=== PATIENT | male | born 1970 | race African-American/Black ===

== ENCOUNTER 2016-07-23 09:07 | Emergency (ER) | payer OTHER ==
[2016-07-23 09:20] VITALS: BP 146/86; PULSE 110; TEMP 98; BMI 35.9
[2016-07-23] MEDS ORDERED: NAPROXEN 500 MG TABLET (FP) PO ONE (09:48)
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
== END 2016-07-23 10:01 | disposition home or self-care (01) ==
LOC: JERFT 09:07
DX: S39.012A Strain of muscle, fascia and tendon of lower back, initial encounter (principal); X50.0XXA Overexertion from strenuous movement or load, initial encounter; X00.8XXA Other exposure to uncontrolled fire in building or structure, initial encounter; Y93.89 Activity, other specified; Y92.89 Other specified places as the place of occurrence of the external cause; Y99.0 Civilian activity done for income or pay
CPT/HCPCS: 99281-25

== ENCOUNTER 2017-09-15 23:10 | Emergency (ER) | payer OTHER ==
[2017-09-15] MEDS ORDERED: ACETAMINOPHEN 1000 MG/100 ML VIAL (NON FORMULARY) IVPB ONE (23:22)
[2017-09-15] MEDS ORDERED: IBUPROFEN 800 MG/8 ML IJ IVPB ONE (23:23)
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
[2017-09-15] MEDS ORDERED: IBUPROFEN 600 MG TABLET (FP) PO ONE (23:30)
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
[2017-09-15 23:36] VITALS: BP 128/93; PULSE 120; TEMP 97; BMI 36.2
== END 2017-09-15 23:44 | disposition home or self-care (01) ==
LOC: JER 23:10
DX: S39.012A Strain of muscle, fascia and tendon of lower back, initial encounter (principal); M25.511 Pain in right shoulder; X50.0XXA Overexertion from strenuous movement or load, initial encounter; Y93.89 Activity, other specified; Y92.89 Other specified places as the place of occurrence of the external cause; Y99.0 Civilian activity done for income or pay
CPT/HCPCS: 99281-25

== ENCOUNTER 2017-11-24 19:25 | Emergency (ER) | payer OTHER ==
[2017-11-24 19:30] VITALS: BP 136/92; PULSE 96; TEMP 98.1; BMI 36.0
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
== END 2017-11-24 20:34 | disposition home or self-care (01) ==
LOC: JER 19:25 → JERFT 19:25
PROC: 2W3QXYZ Immobilization of Right Lower Leg using Other Device (ICD-10-PCS; principal; 2017-11-24)
DX: S83.8X1A Sprain of other specified parts of right knee, initial encounter (principal); X50.1XXA Overexertion from prolonged static or awkward postures, initial encounter; V86.41XA Person injured while boarding or alighting from ambulance or fire engine, initial encounter; Y92.488 Other paved roadways as the place of occurrence of the external cause; Y99.0 Civilian activity done for income or pay; Y93.89 Activity, other specified
CPT/HCPCS: 73562-TC-RT-FY; 99281-25

== ENCOUNTER 2018-03-04 05:03 | Emergency (ER) | payer OTHER ==
[2018-03-04 05:09] VITALS: BP 152/96; PULSE 89; TEMP 98.6; BMI 36.2
[2018-03-04] MEDS ORDERED: KETOROLAC TROMETHAMINE 60 MG/2 ML VIAL IM ONE (05:10)
--- NOTE | 2018-03-04 05:14 | PDOC ---
Attending Attestation - Resident Resident Name: Robby Velasco - ED Attending Attestation I have performed the following: I have examined & evaluated the patient, The case was reviewed & discussed with the resident, I agree w/resident's findings & plan, Exceptions are as noted - HPI HPI: 03/04/18 05:07 47 yo M presenting with a complaint of left shoulder pain after starting a saw No limitations in range of motion. - Physicial Exam PE: 03/04/18 05:07 On examination: - Medical Decision Making 03/04/18 05:10 Shoulder x ray not needed Toradol for pain D/C home Follow up with Orthopedist
--- NOTE | 2018-03-04 05:14 | PDOC ---
History of Present Illness - General Chief Complaint: Pain, Acute Stated Complaint: LT SHOULDER PAIN Time Seen by Provider: 03/04/18 05:05 History Source: Patient Exam Limitations: No Limitations - History of Present Illness Initial Comments: 03/04/18 05:10 Patient is a 47M with no significant medical history here today complaining of left shoulder pain after starting a saw. Denies a sensation of the shoulder being out of the joint. Denies any limitations to range of motion. Denies direct trauma. Denies fevers, chills, nausea, vomiting. Denies chest pain, shortness of breath. Past History - Past Medical History Allergies/Adverse Reactions: Allergies Allergy/AdvReac Type Severity Reaction Status Date / Time No Known Allergies Allergy Verified 03/04/18 05:07 Home Medications: Ambulatory Orders Ibuprofen 800 mg PO TID #30 tablet 11/24/17 - Suicide/Smoking/Psychosocial Hx Smoking Status: No Smoking History: Never smoked Have you smoked in the past 12 months: No Number of Cigarettes Smoked Daily: 0 Information on smoking cessation initiated: No Hx Alcohol Use: No Drug/Substance Use Hx: No Substance Use Type: None Review of Systems - Review of Systems Comments:: 03/04/18 05:11 GENERAL/CONSTITUTIONAL: No fever or chills. No weakness. HEAD, EYES, EARS, NOSE AND THROAT: No change in vision.No sore throat. CARDIOVASCULAR: No chest pain or shortness of breath RESPIRATORY: No cough, wheezing, or hemoptysis. GASTROINTESTINAL: No nausea, vomiting, diarrhea or constipation. GENITOURINARY: No dysuria, frequency, or change in urination. MUSCULOSKELETAL: +left shoulder pain. No neck or back pain. SKIN: No rash NEUROLOGIC: No headache, vertigo, loss of consciousness, or change in strength/ sensation. ALLERGIC/IMMUNOLOGIC: No hives or skin allergy. *Physical Exam - Vital Signs Last Vital Signs Temp Pulse Resp BP Pulse Ox 98.6 F 89 18 152/96 97 03/04/18 05:07 03/04/18 05:07 03/04/18 05:07 03/04/18 05:07 03/04/18 05:07 - Physical Exam Comments: 03/04/18 05:12 GENERAL: Awake, alert, and fully oriented, in no acute distress L SHOULDER: Neurovascularly intact, normal strength, nontender along collarbone/ humerus, no axillary nerve deficits HEAD: No signs of trauma, normocephalic, atraumatic EYES: PERRLA, EOMI, sclera anicteric, conjunctiva clear ENT: Auricles normal inspection, hearing grossly normal, nares patent, oropharynx clear without exudates. Moist mucosa NECK: Normal ROM, supple, no lymphadenopathy, JVD, or masses LUNGS: No distress, speaks full sentences, clear to auscultation bilaterally HEART: Regular rate and rhythm, normal S1 and S2, no murmurs, rubs or gallops, peripheral pulses normal and equal bilaterally. NEUROLOGICAL: Cranial nerves II through XII grossly intact. Normal speech, normal gait, no focal sensorimotor deficits SKIN: Warm, Dry, normal turgor, no rashes or lesions noted. Medical Decision Making - Medical Decision Making 03/04/18 05:13 Patient is 47M here today with atraumatic shoulder pain. Vital signs normal and stable. Mechanical injury. No reason to suspect atypical ACS given history and physical. Will treat with toradol. Discharge. Patient has ortho follow up. *DC/Admit/Observation/Transfer Diagnosis at time of Disposition: Shoulder pain, left - Discharge Dispostion Disposition: HOME Condition at time of disposition: Good Decision to Admit order: No - Referrals - Patient Instructions Printed Discharge Instructions: DI for Shoulder Sprain Additional Instructions: Please follow up with your PCP or Orthopedic doctor this week. - Post Discharge Activity
[2018-03-04] MEDS ORDERED: KETOROLAC TROMETHAMINE 60 MG/2 ML VIAL ONE (05:16)
== END 2018-03-04 05:22 | disposition home or self-care (01) ==
LOC: JER 05:03
PROC: 3E0233Z Introduction of Anti-inflammatory into Muscle, Percutaneous Approach (ICD-10-PCS; principal; 2018-03-04)
DX: S43.492A Other sprain of left shoulder joint, initial encounter (principal); X50.0XXA Overexertion from strenuous movement or load, initial encounter; Y93.89 Activity, other specified; Y92.89 Other specified places as the place of occurrence of the external cause; Y99.0 Civilian activity done for income or pay
CPT/HCPCS: 99283-25

== ENCOUNTER 2020-10-01 22:03 | Emergency (ER) | payer OTHER ==
[2020-10-01 22:14] VITALS: TEMP 98.3; BMI 36.2
[2020-10-02 00:09] VITALS: BP 141/79; PULSE 100
== END 2020-10-02 00:16 | disposition home or self-care (01) ==
LOC: JER 22:03
DX: M25.561 Pain in right knee (principal)
CPT/HCPCS: 73562-TC-RT-FY; 99283-25

== ENCOUNTER 2022-08-18 14:42 | Emergency (ER) | payer OTHER ==
[2022-08-18 14:51] VITALS: BP 128/51; PULSE 92; RESP 18; TEMP 97.9; BMI 34.6
[2022-08-18] MEDS ORDERED: IBUPROFEN 600 MG TABLET (FP) PO ONE ×2 (15:35→15:39)
== END 2022-08-18 16:08 | disposition home or self-care (01) ==
LOC: JER 14:42
DX: S39.012A Strain of muscle, fascia and tendon of lower back, initial encounter (principal); X50.0XXA Overexertion from strenuous movement or load, initial encounter; Y99.0 Civilian activity done for income or pay
CPT/HCPCS: 99282-25

== ENCOUNTER 2024-02-15 19:03 | Emergency (ER) | payer OTHER ==
[2024-02-15 19:06] VITALS: BP 136/90; PULSE 110; RESP 18; TEMP 98; BMI 33.3
[2024-02-15] MEDS ORDERED: IBUPROFEN 600 MG TABLET (FP) PO ONE (19:27)
[2024-02-15] MEDS: IBUPROFEN 600 MG TABLET (FP) PO ONE (19:30)
== END 2024-02-15 19:47 | disposition home or self-care (01) ==
LOC: JERFT 19:03
DX: S39.012A Strain of muscle, fascia and tendon of lower back, initial encounter (principal); X50.0XXA Overexertion from strenuous movement or load, initial encounter; Y99.0 Civilian activity done for income or pay
CPT/HCPCS: 99283-25